=== PATIENT | male | born 1995 | race Caucasian/White ===

== ENCOUNTER 2019-10-24 10:08 | Emergency (ER) | payer BC ==
[~2019-10-24] VITALS: Ht 182.9 cm; Wt 104.3 kg
--- NOTE | 2019-10-24 10:18 | NUR ---
Dr Rubalcava at the bedside for MSE.
[2019-10-24 10:32] VITALS: BP 148/92
--- NOTE | 2019-10-24 10:33 | NUR ---
Patient discharged to home in stable conditon. Written and verbal after care instructions given. Patient verbalizes understanding of instructions.
== END 2019-10-24 10:33 | disposition home or self-care (01) ==
LOC: ER 10:08
DX: Z76.0 Encounter for issue of repeat prescription (principal); K21.9 Gastro-esophageal reflux disease without esophagitis; Z60.2 Problems related to living alone
CPT/HCPCS: A4663

== ENCOUNTER 2019-10-28 10:27 | Emergency (ER) | payer BC ==
[~2019-10-28] VITALS: Ht 182.9 cm; Wt 104.3 kg
[2019-10-28 12:18] LABS: BASOPHILS % (AUTO) 0.4 % (0.0-2.0); EOSINOPHILS # (AUTO) 0.1 K/uL (0.0-0.7); EOSINOPHILS % (AUTO) 0.7 % (0.0-7.0); HEMATOCRIT 45.1 % (36.7-47.1); HEMOGLOBIN 15.2 g/dL (12.5-16.3); LYMPHOCYTES # (AUTO) 2.9 K/uL (20.0-40.0); LYMPHOCYTES % (AUTO) 30.4 % (20.5-51.5); MEAN CORPUSCULAR HEMOGLOBIN 29.2 uug (23.8-33.4); MEAN CORPUSCULAR HGB CONC 34 g/dL (32.5-36.3); MEAN CORPUSCULAR VOLUME 86.7 fL (73.0-96.2); MONOCYTES # (AUTO) 0.7 K/uL (2.0-10.0); MONOCYTES % (AUTO) 7.4 % (0.0-11.0); NEUTROPHILS # (AUTO) 5.7 K/uL (1.8-8.9); NEUTROPHILS % (AUTO) 61.1 % (38.5-71.5); PLATELET COUNT (AUTO) 291 K/uL (152-348); WHITE BLOOD COUNT (AUTO) 9.4 K/uL (3.6-10.2)
[2019-10-28 12:24] LABS: CREATININE 0.9 mg/dL (0.6-1.3); POTASSIUM 4.4 mmol/L (3.5-5.1)
[2019-10-28 12:30] LABS: BILIRUBIN,TOTAL 0.7 mg/dL (0.2-1.0); TOTAL PROTEIN, SERUM 7.5 g/dL (6.4-8.2)
[2019-10-28] MEDS ORDERED: IBUPROFEN 800 MG TABLET PO ONE (13:00)
[2019-10-28] MEDS ORDERED: IBUPROFEN 800 MG TABLET ONE (13:00)
--- NOTE | 2019-10-28 13:17 | NUR ---
Patient discharged to home in stable conditon. Written and verbal after care instructions given. Patient verbalizes understanding of instructions.PT WALKS IN STEADY GAIT. PT UNDERSTANDS THAT NEEDS TO FOLLOW UP WITH NEUROLOGIST.
[2019-10-28 13:18] VITALS: BP 109/55
--- NOTE | 2019-10-28 13:19 | NUR ---
PT WAS REPORTED TO DEPARTMENT OF MOTOR VEHICLES FOR NEW ONSET OF SEIZURE PER ER MD ORDER. PT AWARE.
== END 2019-10-28 13:20 | disposition home or self-care (01) ==
LOC: ER 10:27
DX: S00.211A Abrasion of right eyelid and periocular area, initial encounter (principal); K21.9 Gastro-esophageal reflux disease without esophagitis; G40.89 Other seizures; Z60.2 Problems related to living alone; W06.XXXA Fall from bed, initial encounter; Y93.84 Activity, sleeping; Y92.092 Bedroom in other non-institutional residence as the place of occurrence of the external cause; Y99.8 Other external cause status
CPT/HCPCS: 36415; 70450; 85025; A4663

== ENCOUNTER 2024-10-09 10:50 | Emergency (ER) | payer BC, OTHER ==
[~2024-10-09] VITALS: Ht 182.9 cm; Wt 104.3 kg
[2024-10-09 11:59] VITALS: BP 138/88; O2SAT 99
== END 2024-10-09 12:00 | disposition home or self-care (01) ==
LOC: ER 10:50
DX: F10.20 Alcohol dependence, uncomplicated (principal); E66.9 Obesity, unspecified; F31.9 Bipolar disorder, unspecified; F90.9 Attention-deficit hyperactivity disorder, unspecified type; K21.9 Gastro-esophageal reflux disease without esophagitis; Z68.30 Body mass index [BMI] 30.0-30.9, adult; Z60.2 Problems related to living alone
CPT/HCPCS: A4606; A4663